=== PATIENT | female | born 1975 | race Caucasian/White ===

== ENCOUNTER 2019-12-02 20:59 | Emergency (ER) | payer BC ==
[~2019-12-02] VITALS: Ht 180.3 cm; Wt 63.6 kg
[2019-12-02 21:11] VITALS: BP 112/68; PULSE 101; TEMP 98.4
== END 2019-12-02 22:50 | disposition left against medical advice (07) ==
LOC: COL.ER 20:59
DX: S20.212A Contusion of left front wall of thorax, initial encounter (principal); R40.2410 Glasgow coma scale score 13-15, unspecified time; V19.9XXA Pedal cyclist (driver) (passenger) injured in unspecified traffic accident, initial encounter; Y93.55 Activity, bike riding; Y92.480 Sidewalk as the place of occurrence of the external cause